=== PATIENT | male | born 1970 | race Caucasian/White ===

== ENCOUNTER 2021-11-20 18:40 | Emergency (ER) | payer MEDICAID ==
[~2021-11-20] VITALS: Ht 175.3 cm; Wt 77.1 kg
[2021-11-20 19:42] LABS: CALCIUM, SERUM 8.9 mg/dL (8.5-10.1); CARBON DIOXIDE 24 mmol/L (21-32); CHLORIDE 101 mmol/L (98-107); CREATININE 1.3 mg/dL (0.6-1.3); GLUCOSE 335 mg/dL (74-106); POTASSIUM 4.2 mmol/L (3.5-5.1); SODIUM SERUM 137 mmol/L (136-145); UREA NITROGEN, BLOOD 21 mg/dL (7-18)
[2021-11-20 20:03] LABS: BASOPHILS % (AUTO) 0.4 % (0.0-2.0); EOSINOPHILS % (AUTO) 0.6 % (0.0-6.0); HEMATOCRIT 40 % (39-51); HEMOGLOBIN 14.1 g/dL (13.5-17.5); LYMPHOCYTES # (AUTO) 1.1 K/uL (0.8-4.8); LYMPHOCYTES % (AUTO) 14.4 % (20.0-44.0); MEAN CORPUSCULAR HGB CONC 35 g/dl (31.0-36.0); MEAN CORPUSCULAR VOLUME 93 fL (80-96); MONOCYTES # (AUTO) 0.6 K/uL (0.1-1.30); MONOCYTES % (AUTO) 7.4 % (2.0-12.0); NEUTROPHILS # (AUTO) 5.8 K/uL (1.8-8.9); NEUTROPHILS % (AUTO) 77.2 % (43.0-81.0); PLATELET COUNT (AUTO) 164 K/uL (150-450); WHITE BLOOD COUNT (AUTO) 7.5 K/uL (4.3-11.0)
[2021-11-20] MEDS ORDERED: ASPIRIN 81 MG TAB.CHEW ONE (22:26)
[2021-11-20] MEDS ORDERED: ASPIRIN 81 MG TAB.CHEW PO ONE (22:30)
[2021-11-21 00:15] VITALS: BP 142/71
== END 2021-11-21 00:16 | disposition left against medical advice (07) ==
LOC: ER 18:43
DX: R55 Syncope and collapse (principal); R07.9 Chest pain, unspecified; U07.1 COVID-19; E11.9 Type 2 diabetes mellitus without complications; F17.200 Nicotine dependence, unspecified, uncomplicated; Z53.29 Procedure and treatment not carried out because of patient's decision for other reasons
CPT/HCPCS: 36415; 71045; 80048; 82962 ×2; 83880; 84484 ×2; 85025; 87426; 93005; 99285; C9803